=== PATIENT | female | born 1995 | race Asian ===

== ENCOUNTER 2017-02-04 01:19 | Emergency (ER) | payer OTHER ==
[~2017-02-04] VITALS: Ht 162.6 cm; Wt 50.5 kg
[2017-02-04 01:29] VITALS: TEMP 37.1; Ht 162.6 cm; Wt 50.5 kg
--- NOTE | 2017-02-04 01:42 | EMERGENCY ROOM VISIT NOTE ---
History First contact with patient: 01:34 Chief Complaint: URINARY SYMPTOMS Stated Complaint: BLOOD IN URINE,URETHRAL MEATUS PAINFUL Nursing Triage Summary: Pt complains of urinary pain and frequency since 8pm. Pt also reports blood in urine. History of Present Illness The patient is a 21 year old female who presents to the Emergency Room with complaints of urinary frequency, urgency, dysuria and hematuria for the past day. Patient denies back pain, chest pain, dyspnea, fever, chills, nausea, vomiting. Patient does not feel at risk for STI's. She does not get frequent urinary infections. No other complains per patient. Review of Systems A 6 system review of systems was completed with positives and pertinent negatives listed in the HPI. Past Medical/Surgical History None Social History Smoking Status: Never Smoker Alcohol Use: none Drug Use: none Marital Status: in relationship Occupation Status: [employer] student Physical Exam Vital Signs Date Time Temp Pulse Resp B/P (MAP) Pulse Ox O2 Delivery O2 Flow Rate FiO2 02/04/17 01:29 37.1 106 16 139/86 97 Room Air Physical Exam VITALS: Vitals are noted on the nurse's note and reviewed by myself. Vital signs stable. GENERAL: Pleasant female, in no acute distress, nondiaphoretic, well-developed well-nourished. SKIN: Capillary reflex less than 2 seconds. HEENT: Normocephalic. PERRLA. EOMI. Nares patent. Mucous membranes moist. Neck is supple without nuchal rigidity. HEART: Regular rate and rhythm without murmurs gallops or rubs. LUNGS: Clear to auscultation bilaterally without wheezes, rales or rhonchi. No retractions or accessory muscle use. ABDOMEN: Positive bowel sounds x 4. Normal tympanic percussion. Soft, nontender, without masses or organomegaly. Diaz sign negative. No guarding or rebound tenderness. No CVA tenderness MUSCULOSKELETAL: No gross musculoskeletal defects. NEURO: Patient was alert and oriented to person place and time. Normal sensation to light and sharp touch. No focal neurological deficits. Medical Decision & Procedures Laboratory Results Test 02/04/17 01:33 ED Course Prior records/ancillary studies reviewed. Triage Nursing notes reviewed. Additional history obtained from family The patient's history was concerning for urinary symptoms Differential diagnosis: Etiologies such as UTI, infections, STI, , renal colic, as well as others were entertained. Physical examination findings: As above. ER treatment provided: Bactrim, Pyridium On reassessment the patient felt better. Diagnostics interpreted by me: The labs revealed urine concerning for infection and sent for culture. Negative hCG Exam and history seem consistent with UTI. Patient was advised to drink plenty of fluids. Bladder and take antibiotics as directed. She is advised to follow- up family care in a few days or here in the ER sooner for fevers, back pain, vomiting, worsening signs or symptoms or as needed. She did not have an acute abdomen on exam. She is well-appearing. By the evaluation outlined above emergent etiologies such as , renal colic, as well as others were deemed relatively unlikely. The pt informed about the findings as listed above. All questions were answered and pleased with the treatment. Return instructions were outlined and the patient was discharged in stable condition. Outpatient prescription management: Bactrim, Pyridium Referral: The patient was referred back to their primary care physician for follow-up in 2 to 3 days for a recheck of the current condition. Medical Decision As above Medication Reconcilliation Current Medication List: was personally reviewed by me Blood Pressure Screening Patient's blood pressure: Normal blood pressure Impression Primary Impression: Urinary tract infection Departure Information Dispostion Home / Self-Care Condition GOOD Referrals No Doctor, Assigned (PCP) Patient Instructions My [facility] Additional Instructions Trimethoprim-Sulfamethoxazole(Bactrim DS): Take one pill twice daily for 5 days for your urine infection. All antibiotics can cause diarrhea. If this occurs and you feel worse or it does not resolve in 1-2 days follow up with your doctor or return to the Emergency Department as this could be signs of serious underlying problems. Any medication can cause an allergic reaction, stop the pills immediately and return to the ER for rash, hives, breathing difficulties, or swelling. Pyridium 200mg: Take one pill three times daily as needed for urinary discomfort. This medication will turn your urine orange. This is normal and nothing to be concerned about. Ibuprofen(Motrin, Advil) may be used for fever or pain. Use 600mg every six hours as needed. Take with food. Avoid using more than 2400mg in a 24 hour period. Do not use 2400mg per day for more than three consecutive days without physician direction. Prolonged inappropriate use can lead to stomach upset or ulcers. (AND/OR) Acetaminophen(Tylenol) may be used for fever or pain. Use 1000mg every six hours as needed. Avoid using more than 3000mg in a 24 hour period. Rest and drink plenty of fluids as tolerated. Slow sips of water or sports drinks are recommended instead of large amounts all at once. Continue current medications. Return to the ER immediately for worsening or persistent abdominal/back pain, vomiting, fevers, worsening of your condition, or as needed. Follow up with your primary physician within 2-3 days for a recheck of the current condition. Problem Qualifiers Primary Impression: Urinary tract infection Urinary tract infection type: acute cystitis Hematuria presence: with hematuria Qualified Codes: N30.01 - Acute cystitis with hematuria
[2017-02-04] MEDS ORDERED: PHEN-876 PO (01:44)
[2017-02-04] MEDS ORDERED: SULF800T23 PO (01:44)
[2017-02-04] MEDS ORDERED: PHENAZOPYRIDINE HOME PACK 200 MG VIAL PO ONE (01:45)
[2017-02-04] MEDS ORDERED: SEPTRA DS HOME PACK 1 EA VIAL PO ONE (01:45)
[2017-02-04 01:56] VITALS: BP 139/86; PULSE 106; O2SAT 97
[2017-02-04 01:58] LABS: URINE APPEARANCE CLEAR (CLEAR); URINE BILIRUBIN NEG (NEG); URINE COLOR RED; URINE NITRITE NEG (NEG); URINE SPECIFIC GRAVITY 1.011 (1.000-1.030); UROBILINOGEN NEG (NEG)
[2017-02-04 02:01] LABS: MANUAL MICROSCOPIC REQUIRED? YES; REVIEW REQ? NO
[2017-02-04 02:30] LABS: URINE RBC 0-4 /hpf (0-4); URINE WBC >30 /hpf (0-5)
[2017-02-04 02:31] LABS: URINE BACTERIA 1+ (NEG)
== END 2017-02-04 01:56 | disposition home or self-care (01) ==
LOC: C.EDB 01:21
DX: N30.01 Acute cystitis with hematuria (principal)